=== PATIENT | male | born 1995 | race Caucasian/White ===

== ENCOUNTER 2016-11-26 11:50 | Emergency (ER) | payer OTHER ==
--- NOTE | 2016-11-26 12:09 | EDPHY ---
H & P Stated Complaint: R flank pain; trouble urinating HPI/ROS: HPI CHIEF COMPLAINT: Right flank pain, hematuria HISTORY OF PRESENT ILLNESS: The patient very pleasant 21-year-old male denies any significant medical surgical history presents emergency room with 12-14 hours of right flank pain sharp and stabbing radiating to right lower abdomen right testicle with blood in his urine and urinary hesitancy. Also admits to having a nausea with vomiting. He denies history of kidney stones. Came to the emergency room due to worsening pain. Currently his pain is 3/10. Past Medical History: No significant medical history Past Surgical History: No significant surgical history Social History: Denies use of tobacco but endorses alcohol occasionally Family History: Noncontributory ROS REVIEW OF SYSTEMS: A comprehensive 10 point review of systems is otherwise negative aside from elements mentioned in the history of present illness. Exam Constitutional triage nursing summary reviewed, vital signs reviewed, awake/ alert. Eyes normal conjunctivae and sclera, EOMI, PERRLA. HENT normal inspection, atraumatic, moist mucus membranes, no epistaxis, neck supple/ no meningismus, no raccoon eyes. Respiratory clear to auscultation bilaterally, normal breath sounds, no respiratory distress, no wheezing. Cardiovascular rate normal, regular rhythm, no murmur, no edema, distal pulses normal. Gastrointestinal soft, non-tender, no rebound, no guarding, normal bowel sounds, no distension, no pulsatile mass. Genitourinary no CVA tenderness. Musculoskeletal no midline vertebral tenderness, full range of motion, no calf swelling, no tenderness of extremities, no meningismus, good pulses, neurovascularly intact. Skin pink, warm, & dry, no rash, skin atraumatic. Neurologic awake, alert and oriented x 3, AAOx3, moves all 4 extremities equally, motor intact, sensory intact, CN II-XII intact, normal cerebellar, normal vision, normal speech. Psychiatric normal mood/affect. Heme/Lymph/Immune no lymphadenopathy. Differential diagnosis includes but is not limited to and in no particular order : Bowel obstruction, appendicitis, gallbladder disease, diverticulitis, colitis , enteritis, perforated viscus, gastritis, GERD, esophagitis, urinary tract infection, pyelonephritis, kidney stones Medical Decision Making: This patient had an IV established obtain blood work, patient be given a fluid bolus of normal saline, he will need a CT scan his abdomen pelvis without contrast for flank pain. Check urinalysis. Re-evaluation: CT scan of the abdomen pelvis with/out IV contrast The results of the study are this shows a 3 mm right UVJ stone with mild hydronephrosis. The study was read by Dr. Dinero. I viewed the images myself on the PACS system. 1314: Re-examination at this time: patient is resting comfortably he has no pain. I went over his CT results with 3 mm right UVJ stone. Patient understands stay well-hydrated follow-up urology urinated urine strainer he passed stone next 72 hours. However prescription for [place], Zofran, Flomax. He understands return to the ER if develops worsening symptoms questions or concerns. Source: Patient - Personal History Current Tetanus Diphtheria and Acellular Pertussis (TDAP): Yes - Social History Smoking Status: Never smoked Constitutional: Initial Vital Signs Temperature (C) 37 C 11/26/16 11:55 Heart Rate 64 11/26/16 11:55 Respiratory Rate 16 11/26/16 11:55 Blood Pressure 116/81 H 11/26/16 11:55 O2 Sat (%) 100 11/26/16 11:55 O2 Delivery Mode Room Air Allergies/Adverse Reactions: Penicillins Allergy (Unknown, Verified 11/26/16 11:57) Home Medications: Medication Instructions Recorded Hydrocodone/APAP 5/325 [[place] 1 - 2 tab PO Q4H PRN #10 tab 11/26/16 5/325] Ondansetron HCl [Zofran] 4 mg PO Q4-6PRN PRN #10 tablet 11/26/16 Tamsulosin HCl [Flomax] 0.4 mg PO DAILY #10 cap 11/26/16 Medical Decision Making - Data Points Laboratory Results: Laboratory Results 11/26/16 12:10 11/26/16 12:10 11/26/16 11/26/16 12:10 12:00 WBC 11.99 H 10^3/uL (3.80-9.50) RBC 4.92 10^6/uL (4.40-6.38) Hgb 15.7 g/dL (13.7-17.5) Hct 44.3 % (40.0-51.0) MCV 90.0 fL (81.5-99.8) MCH 31.9 pg (27.9-34.1) MCHC 35.4 g/dL (32.4-36.7) RDW 11.5 % (11.5-15.2) Plt Count 259 10^3/uL (150-400) MPV 9.6 fL (8.7-11.7) Neut % (Auto) 74.5 H % (39.3-74.2) Lymph % (Auto) 18.3 % (15.0-45.0) [place] % (Auto) 5.6 % (4.5-13.0) Eos % (Auto) 0.9 % (0.6-7.6) Baso % (Auto) 0.4 % (0.3-1.7) Nucleat RBC Rel Count 0.0 % (0.0-0.2) Absolute Neuts (auto) 8.92 H 10^3/uL (1.70-6.50) Absolute Lymphs (auto) 2.20 10^3/uL (1.00-3.00) Absolute Monos (auto) 0.67 10^3/uL (0.30-0.80) Absolute Eos (auto) 0.11 10^3/uL (0.03-0.40) Absolute Basos (auto) 0.05 10^3/uL (0.02-0.10) Absolute Nucleated RBC 0.00 10^3/uL (0-0.01) Immature Gran % 0.3 % (0.0-1.1) Immature Gran # 0.04 10^3/uL (0.00-0.10) Sodium 141 mEq/L (134-144) Potassium 3.9 mEq/L (3.5-5.2) Chloride 105 mEq/L (97-110) Carbon Dioxide 24 mEq/l (22-31) Anion Gap 12 mEq/L (8-16) BUN 18 mg/dL (7-23) Creatinine 0.9 mg/dL (0.7-1.3) Estimated GFR > 60 Glucose 118 H mg/dL (70-100) Calcium 9.2 mg/dL (8.5-10.4) Total Bilirubin 1.1 mg/dL (0.1-1.4) Conjugated Bilirubin 0.3 mg/dL (0.0-0.5) Unconjugated Bilirubin 0.8 mg/dL (0.0-1.1) AST 27 IU/L (17-59) ALT 35 IU/L (21-72) Alkaline Phosphatase 54 IU/L (38-126) Total Protein 7.5 g/dL (6.3-8.2) Albumin 4.3 g/dL (3.5-5.0) Lipase 17.0 L IU/L (23-300) Urine Color YELLOW Urine Appearance MODERATELY TURBID Urine pH 5.0 (5.0-7.5) Ur Specific [place] 1.017 (1.002-1.030) Urine Protein 2+ H (NEGATIVE) Urine Ketones NEGATIVE (NEGATIVE) Urine Blood 3+ H (NEGATIVE) Urine Nitrate NEGATIVE (NEGATIVE) Urine Bilirubin NEGATIVE (NEGATIVE) Urine Urobilinogen NEGATIVE EU (0.2-1.0) Ur Leukocyte Esterase NEGATIVE (NEGATIVE) Urine RBC 50-182 H /hpf (0-3) Urine WBC 10-15 H /hpf (0-3) Ur Epithelial Cells NONE SEEN /lpf (NONE-1+) Urine Mucus 2+ H /lpf (NONE-1+) Ur Culture Indicated? INDICATED H (NI) Urine Glucose NEGATIVE (NEGATIVE) Medications Given: Discontinued Medications Sodium Chloride (Ns) 1,000 mls @ 0 mls/hr IV ONCE ONE PRN Reason: Wide Open Stop: 11/26/16 12:14 Last Admin: 11/26/16 13:04 Dose: 1,000 mls Ketorolac Tromethamine (Toradol) 30 mg IVP EDNOW ONE Stop: 11/26/16 12:14 Last Admin: 11/26/16 13:03 Dose: 30 mg Ondansetron HCl (Zofran) 4 mg IVP EDNOW ONE Stop: 11/26/16 13:09 Last Admin: 11/26/16 13:09 Dose: 4 mg Departure - Departure Disposition: Home, Routine, Self-Care Clinical Impression: Kidney stone on right side Condition: Good Instructions: Kidney Stones (ED), Renal Colic (ED), Flank Pain (ED) Additional Instructions: 1. Drink lots of fluids. 2. Stay well-hydrated. 3. Return emergency room if develops worsening symptoms includes worsening vomiting or flank pain. 4. Please follow up with Urology. Referrals: NONE *PRIMARY CARE P,. [Primary Care Provider] - As per Instructions Eliud Michele MD [Medical Doctor] - As per Instructions Prescriptions: Tamsulosin HCl [Flomax] 0.4 mg PO DAILY #10 cap Hydrocodone/APAP 5/325 [[place] 5/325] 1 - 2 tab PO Q4H PRN #10 tab PRN Reason: Pain, Moderate Ondansetron HCl [Zofran] 4 mg PO Q4-6PRN PRN #10 tablet PRN Reason: Nausea/Vomiting, Use 1st
[2016-11-26] MEDS ORDERED: NS 1,000 ML IV ONE (12:13)
[2016-11-26] MEDS ORDERED: KETOROLAC 30 MG/1 ML SDV IVP ONE (12:13)
[2016-11-26 12:27] LABS: COLOR YELLOW; LEUKOCYTE ESTERASE,URINE NEGATIVE (NEGATIVE); NITRITE,URINE NEGATIVE (NEGATIVE)
[2016-11-26 12:27] LABS: % IMMATURE GRANULYOCYTES 0.3 % (0.0-1.1); ABSOLUTE IMMATURE GRANULOCYTES 0.04 10^3/uL (0.00-0.10); ADD DIFF? NO; ADD MORPH? NO; ADD SCAN? NO; ATYPICAL LYMPHOCYTE FLAG 20 (0-99); FRAGMENT RBC FLAG 0 (0-99); HEMATOCRIT 44.3 % (40.0-51.0); HEMOGLOBIN 15.7 g/dL (13.7-17.5); LEFT SHIFT FLG 10 (0-99); LIPEMIA HEMOLYSIS FLAG 90 (0-99); MEAN CELL HEMOGLOBIN 31.9 pg (27.9-34.1); MEAN CELL HEMOGLOBIN CONCENTR. 35.4 g/dL (32.4-36.7); MEAN PLATELET VOLUME 9.6 fL (8.7-11.7); PLATELET CLUMPS FLAG 0 (0-99); PLATELET COUNT 259 10^3/uL (150-400); RED BLOOD CELL COUNT 4.92 10^6/uL (4.40-6.38); RED CELL DISTRIBUTION WIDTH 11.5 % (11.5-15.2)
[2016-11-26 12:34] LABS: MUCUS 2+ /lpf (NONE-1+); RBC,URINE 50-182 /hpf (0-3)
[2016-11-26 12:50] LABS: ALANINE AMINOTRANSFERASE 35 IU/L (21-72); ALBUMIN 4.3 g/dL (3.5-5.0); ALKALINE PHOSPHATASE 54 IU/L (38-126); ANION GAP 12 mEq/L (8-16); ASPARTATE AMINOTRANSFERASE 27 IU/L (17-59); BILIRUBIN,TOTAL 1.1 mg/dL (0.1-1.4); BILIRUBIN-CONJUGATED 0.3 mg/dL (0.0-0.5); BILIRUBIN-UNCONJUGATED 0.8 mg/dL (0.0-1.1); CALCIUM 9.2 mg/dL (8.5-10.4); CARBON DIOXIDE 24 mEq/l (22-31); CHLORIDE 105 mEq/L (97-110); CREATININE 0.9 mg/dL (0.7-1.3); GLOMERULAR FILTRATION RATE > 60; GLUCOSE 118 mg/dL (70-100); POTASSIUM 3.9 mEq/L (3.5-5.2); SODIUM 141 mEq/L (134-144); TOTAL PROTEIN 7.5 g/dL (6.3-8.2)
[2016-11-26] MEDS ORDERED: ONDANSETRON 4 MG/2 ML VIAL ONE (12:59)
--- NOTE | 2016-11-26 13:02 | CT ---
CT Scan of the Abdomen and Pelvis (Without IV Contrast) Clinical Indications: Right flank pain. Trouble urinating. No cancer history. No abdominal surgeries . Technique: No intravenous contrast was given. Multidetector helical CT imaging is performed from th e diaphragm to the symphysis pubis. Dose reduction techniques were utilized. Findings: Lung bases are clear. Noncontrasted evaluation of the liver, spleen, pancreas, adrenal gla nds, and visceral organs are normal. No renal calcifications. At the right lower pelvis, there is a hyperdensity of 3 x 1.7 x 3 mm, probab ly representing a stone at the UVJ. The ureter around this area is difficult to follow because of an overall lack of fat and nondistended bladder. There is no hydroureter, although there is a very mild amount of hydronephrosis. No perinephric fat stranding. Left ureter is normal. Soft tissues and bones are normal for patient's age. Impression: 3 x 1.7 x 3 mm right ureterovesical junction stone, about to pass into the bladder, with mild right-sided hydronephrosis. Findings are discussed with Dr. Bry Lim in the emergency room. Attention: This examination does not use radiographic contrast, and as such, provides only a limite d evaluation of the abdomen, pelvis, and retroperitoneum. If there is further clinical suspicion for pathological conditions, a complete CT evaluation of the abdomen and pelvis utilizing intravenous, o ral, and rectal contrast should be considered.
[2016-11-26] MEDS ORDERED: ONDANSETRON 4 MG/2 ML VIAL IVP ONE (13:08)
[2016-11-26 13:40] VITALS: BP 111/63; PULSE 54; RESP 14; TEMP 97.5; O2SAT 95
== END 2016-11-26 13:40 | disposition home or self-care (01) ==
DX: N20.0 Calculus of kidney (principal)
CPT/HCPCS: 96374; J1885; J2405